=== PATIENT | male | born 1935 | race Caucasian/White ===

== ENCOUNTER 2016-11-09 21:28 | Emergency (ER) | payer OTHER ==
[2016-11-10 00:45] LABS: HEMOGLOBIN 9.7 gm/dl (14.0-17.5); RED BLOOD COUNT 3.05 M/UL (4.20-5.50); WHITE BLOOD COUNT 8.5 K/UL (4.5-11.0)
== END 2016-11-10 01:50 | disposition left against medical advice (07) ==
LOC: ER1 21:28
PROVIDERS: Physician Assistant
DX: I50.9 Heart failure, unspecified (principal); N17.9 Acute kidney failure, unspecified; N18.9 Chronic kidney disease, unspecified; I48.91 Unspecified atrial fibrillation; D50.9 Iron deficiency anemia, unspecified; J45.909 Unspecified asthma, uncomplicated; Z95.1 Presence of aortocoronary bypass graft; Z87.891 Personal history of nicotine dependence; Z79.82 Long term (current) use of aspirin
CPT/HCPCS: 36415; 71010; 80053; 82550; 82553; 83874; 83880; 84484; 85025; 93005; 99285

== ENCOUNTER → 2016-11-15 | Outpatient (CLI) | payer OTHER ==
[~2016-11-15] VITALS: Ht 188 cm; Wt 99.8 kg
[2016-11-15 13:26] LABS: HEMOGLOBIN 9.4 gm/dl (14.0-17.5); RED BLOOD COUNT 2.93 M/UL (4.20-5.50); WHITE BLOOD COUNT 6.7 K/UL (4.5-11.0)
== END ==
LOC: OPSV 12:00
PROVIDERS: Internal Medicine Nephrology
DX: N18.4 Chronic kidney disease, stage 4 (severe) (principal); D63.1 Anemia in chronic kidney disease
CPT/HCPCS: 36415; 85027; 96372; J0885; Q4081

== ENCOUNTER → 2017-02-07 | Outpatient (CLI) | payer OTHER ==
[2017-02-07 14:42] LABS: HEMOGLOBIN 10.6 gm/dl (14.0-17.5); RED BLOOD COUNT 3.48 M/UL (4.20-5.50); WHITE BLOOD COUNT 8.5 K/UL (4.5-11.0)
== END ==
LOC: OPSV 13:30
PROVIDERS: Internal Medicine Nephrology
DX: N18.4 Chronic kidney disease, stage 4 (severe) (principal); D63.1 Anemia in chronic kidney disease
CPT/HCPCS: 36415; 80069; 85027